=== PATIENT | female | born 1970 | race Caucasian/White ===

== ENCOUNTER → 2019-04-11 13:54 | Outpatient (CLI) | payer OTHER, SELFPAY ==
[2019-04-11 15:43] LABS: Absolute Lymphocyte Count 3.13 X10^3/uL (0.83-4.51); Absolute Neutrophil Count 4.3 X10^3/uL (2.0-7.7); Basophil# 0.05 X10^3/uL; Basophil% 0.6 % (0-1); Eosinophil# 0.11 X10^3/uL; Eosinophils% 1.3 % (0-5); Hematocrit 37.2 % (37-47); Hemoglobin 12.4 g/dL (12.0-15.0); Lymphocyte # 3.13 X10^3/ul (4.0); Lymphocyte % 38.4 % (19-41); Mean Corp Hgb Conc 33.3 g/dL (32-36); Mean Corpuscular Hgb 31.8 pg (27.0-32.0); Mean Corpuscular Volume 95.4 fL (81-99); Mean Platelet Vol. 9.2 fl (6.2-12.0); Monocyte# 0.56 X10^3/uL; Monocyte% 6.9 % (0-10); NRBC Flagged by Analyzer 0 % (0-5); Neutrophil # 4.26 X10^3/uL (2.7-7.7); Neutrophil % 52.2 % (47-70); Platelet Count 446 K/mm3 (150-450); RBC Distribution Width CV 12.6 % (11.6-14.6); RBC Distribution Width SD 43.3 fl (35.1-43.9); White Blood Count 8.2 K/mm3 (4.4-11.0)
[2019-04-11 16:02] LABS: Vitamin B12 420 pg/mL (211-911); Vitamin D,25 Hydroxy 22.7 ng/mL (29.95-100.01)
[2019-04-11 16:17] LABS: Erythrocyte Sedimentation Rate < 1 mm/hr (0-20)
[2019-04-11 16:30] LABS: ALB/GLOB Ratio 1.3 RATIO (0.9-2.4); AST(SGOT) 19 U/L (15-37); Alanine Aminotransfer ALT/SGPT 28 U/L (13-56); Albumin, Serum 3.6 g/dL (3.2-5.0); Alkaline Phosphatase 48 U/L (45-117); Anion Gap 5 (5-15); BUN 15 mg/dL (7-18); BUN/Creat Ratio 14.7 RATIO (10-20); Calcium,Total 8.4 mg/dL (8.5-10.1); Chloride 107 mmol/L (98-107); Creatinine, Serum 1.02 mg/dL (0.55-1.02); EST Glomerular Filtration Rate 62 mL/min (>60); Est Glom Filt Rate - Afr Amer 75 mL/min (>60); Ferritin 34 ng/mL (8-252); Globulin 2.8 g/dL (2.2-4.2); Glucose 108 mg/dL (74-106); Iron 139 ug/dL (50-170); Potassium 3.6 mmol/L (3.5-5.1); Protein, Total 6.4 g/dL (6.4-8.2); Sodium Level 138 mmol/L (136-145); T4 Free Direct 1.07 ng/dL (0.76-1.46); Thyroid Stim Hormone (TSH) 1.57 uIU/mL (0.358-3.74)
== END ==
PROVIDERS: Referring Provider Family Medicine; Visit Provider Family Medicine
DX: R53.83 Other fatigue (principal)
CPT/HCPCS: 36415; 80053; 82306; 82607; 82728; 83540; 84439; 84443; 85025; 85652

== ENCOUNTER → 2019-09-06 07:17 | Outpatient (CLI) | payer OTHER, SELFPAY ==
[2019-09-06 10:27] LABS: Hemoglobin A1c 5.2 % (3.8-5.6)
[2019-09-06 12:01] LABS: Estradiol < 11.0 pg/mL; Follicle Stimulating Hormone 79.8 mIU/mL
[2019-09-06 13:05] LABS: Rheumatoid Factor < 10.0 IU/mL (<15)
== END ==
DX: R53.83 Other fatigue (principal); N91.2 Amenorrhea, unspecified; M25.542 Pain in joints of left hand
CPT/HCPCS: 36415; 82533; 82670; 83001; 83036; 86038; 86200; 86431; 86664; 86665

== ENCOUNTER → 2020-11-04 | Outpatient (CLI) | payer OTHER, SELFPAY | END | disposition home or self-care (01) | LOC: LABSPEC 16:57 | PROVIDERS: Visit Provider Family Medicine | DX: R30.0 Dysuria (principal) | CPT/HCPCS: 81002; 87086 ==